=== PATIENT | male | born 1950 | race Caucasian/White ===

== ENCOUNTER 2020-12-11 09:25 | Inpatient (IN) | payer MEDICARE ==
[2020-12-11] MEDS ORDERED: Melatonin 3 MG Tab PO PRN (09:35)
[2020-12-11] MEDS ORDERED: Sodium Chloride 0.9% 10 ML Syringe FLUSH PRN (09:35)
[2020-12-11] MEDS ORDERED: Ondansetron 4 MG Tab.DIS PO PRN (09:35)
[2020-12-11] MEDS ORDERED: Magnesium Hydroxide 400 MG/5 ML Susp 30 ML Cup PO PRN (09:35)
[2020-12-11] MEDS ORDERED: Acetaminophen 325 MG Tab PO PRN (09:35)
[2020-12-11] MEDS: Sotalol 80 MG Tab PO SCH ×2 (10:12→21:27)
--- NOTE | 2020-12-11 13:38 | PCM.HP.2 ---
H&P History of Present Illness - General Date of Service: 12/11/20 Admit Problem/Dx: Admission Diagnosis/Problem Admission Diagnosis/Problem Paroxysmal atrial fibrillation Source of Information: Patient, Provider History Limitations: Reports: No Limitations - History of Present Illness Initial Comments - Free Text/Narative: CC: sotalol initiation HPI: Delroy was directly admitted for initiation of sotalol to manage his paroxysmal atrial fibrillation. He feels well and has no concerns. No recent difficulties with chest pain or dyspnea on exertion. He has not had recent palpitations but recent heart monitor did show a significant A. fib burden. He is in sinus rhythm this morning. No fevers, abdominal pain or nausea. Bowel and bladder are working like normal. Patient feels well and has no concerns at this time. - Related Data Allergies/Adverse Reactions: Allergies Allergy/AdvReac Type Severity Reaction Status Date / Time No Known Allergies Allergy Verified 12/11/20 10:11 Home Medications: Home Meds Apixaban [Eliquis] 5 mg PO BID 12/11/20 [History] Losartan [Cozaar] 100 mg PO DAILY 12/11/20 [History] amLODIPine [Norvasc] 5 mg PO BEDTIME 12/11/20 [History] atenoloL [Atenolol] 50 mg PO BEDTIME 12/11/20 [History] atorvaSTATin [Lipitor] 40 mg PO BEDTIME 12/11/20 [History] hydroCHLOROthiazide [Hydrochlorothiazide] 25 mg PO DAILY 12/11/20 [History] Past Medical History HEENT History: Reports: Impaired Vision Cardiovascular History: Reports: Afib, Hypertension Respiratory History: Reports: None - Past Surgical History HEENT Surgical History: Reports: None Respiratory Surgical History: Reports: None Musculoskeletal Surgical History: Reports: Knee Replacement Social & Family History - Family History Family Medical History: No Pertinent Family History - Tobacco Use Tobacco Use Status *Q: Never Tobacco User Second Hand Smoke Exposure: No - Caffeine Use Caffeine Use: Reports: Coffee - Alcohol Use Days Per Week of Alcohol Use: 6 Number of Drinks Per Day: 2 Total Drinks Per Week: 12 Date of Last Drink: 12/10/20 Time of Last Drink: 21:00 - Recreational Drug Use Recreational Drug Use: No H&P Review of Systems - Review of Systems: Review Of Systems: See Below Free Text/Narrative: A complete 12 point review of systems was obtained. Pertinent positives and negatives are noted in the history of present illness. All other systems were reviewed and were negative except as noted. Exam - Exam Exam: See Below - Vital Signs Vital Signs: Last Vital Signs Temp 35.7 C L 12/11/20 11:34 Pulse 56 L 12/11/20 11:34 Resp 14 12/11/20 11:34 BP 134/70 12/11/20 11:34 Pulse Ox 96 12/11/20 11:34 Weight: 94.801 kg - Exam Quality Assessment: No: Supplemental Oxygen General: Alert, Oriented, Cooperative. No: Mild Distress HEENT: Conjunctiva Clear, Mucosa Moist & [place]. No: Scleral Icterus Neck: Supple, Trachea Midline, Carotid Bruit (Mild bilateral) Lungs: Clear to Auscultation, Normal Respiratory Effort Cardiovascular: Regular Rate, Regular Rhythm, Systolic Murmur (Soft systolic ejection murmur right upper sternal border). No: Gallop/S3 GI/Abdominal Exam: Normal Bowel Sounds, Soft, Non-Tender, No Distention Extremities: No Pedal Edema. No: Increased Warmth Peripheral Pulses: 2+: Dorsalis Pedis (L), Dorsalis Pedis (R) Skin: Warm, Dry Neuro Extensive - Mental Status: Alert, Oriented x3, Nl Response to Commands Neuro Extensive - Motor, Sensory, Reflexes: No: Dysarthria, Abnormal Motor, Tremor Psychiatric: Alert, Normal Affect - Patient Data Lab Results Last 24 hrs: Laboratory Results - last 24 hr 12/11/20 Range/Units 10:01 Sodium 137 L (140-148) mmol/L Potassium 3.9 (3.6-5.2) mmol/L Chloride 100 (100-108) mmol/L Carbon Dioxide 22 (21-32) mmol/L Anion Gap 18.9 H (5.0-14.0) mmol/L BUN 41 H (7-18) mg/dL Creatinine 2.3 H (0.8-1.3) mg/dL Est Cr Clr Drug Dosing 26.00 mL/min Estimated GFR (MDRD) 28 L (>60) Glucose 108 H (74-106) mg/dL Calcium 9.0 (8.5-10.1) mg/dL Magnesium 2.2 (1.8-2.4) mg/dL Result Diagrams: 12/11/20 10:01 #1 Interpretation EKG Date: 12/11/20 Rhythm: NSR Rate (Beats/Min): 58 [place]: Normal P-Wave: Present QRS: Normal ST-T: Normal QT: Normal [place]/PQ Interval: Normal Comparison: NA - No Prior EKG EKG Interpretation Comments: This EKG image was personally reviewed at the time of admission Sepsis Event Note - Evaluation Sepsis Screening Result: No Definite Risk - Focused Exam Vital Signs: Vital Signs Temp Pulse Pulse Resp BP BP Pulse Ox 12/11/20 11:34 35.7 C L 56 L 14 134/70 96 12/11/20 10:12 47 L 114/72 12/11/20 09:54 36.0 C L 51 L 16 114/72 95 *Q Meaningful Use (ADM) - VTE Risk Assess *Q Each Risk Factor Represents 1 Point: Obesity ( BMI > 25 kg/m2) Total Score 1 Point Risk Factors: 1 Each Risk Factor Represents 2 Points: Age 60 - 74 Years Total Score 2 Point Risk Factors: 2 Each Risk Factor Represents 3 Points: None Total Score 3 Point Risk Factors: 0 Each Risk Factor Represents 5 Points: None Total Score 5 Point Risk Factors: 0 Venous Thromboembolism Risk Factor Score *Q: 3 - Problem List (1) Paroxysmal atrial fibrillation SNOMED Code(s): 938022459 ICD Code: I48.0 - PAROXYSMAL ATRIAL FIBRILLATION Status: Acute Current Visit: Yes (2) Obstructive sleep apnea SNOMED Code(s): 65999002 ICD Code: G47.33 - OBSTRUCTIVE SLEEP APNEA (ADULT) (PEDIATRIC) Status: Chronic Current Visit: Yes (3) Coronary artery disease SNOMED Code(s): 30875870 ICD Code: I25.10 - ATHSCL HEART DISEASE OF [place] CORONARY ARTERY W/O ANG PCTRS Status: Chronic Current Visit: Yes Qualifiers: Coronary Disease-Associated Artery/Lesion type: [place] artery [place] vs. transplanted heart: [place] heart Associated angina: without angina Qualified Code(s): I25.10 - Atherosclerotic heart disease of [place] coronary artery without angina pectoris (4) Hypertension SNOMED Code(s): 88060738 ICD Code: I10 - ESSENTIAL (PRIMARY) HYPERTENSION Status: Chronic Current Visit: Yes Qualifiers: Hypertension type: primary hypertension Qualified Code(s): I10 - Essential (primary) hypertension Problem List Initiated/Reviewed/Updated: Yes Orders Last 24hrs: Active Orders 24 hr Category Date Time Status Patient Status [ADT] Routine ADT 12/11/20 09:36 Active Cardiac Monitoring [RC] CONTINUOUS Care 12/11/20 09:37 Active EKG Documentation Completion [RC] ASDIRECTED Care 12/11/20 09:38 Active Intake and Output [RC] QSHIFT Care 12/11/20 09:36 Active Notify Provider Vital Signs [RC] ASDIRECTED Care 12/11/20 09:36 Active Oxygen Therapy [RC] PRN Care 12/11/20 09:36 Active Up ad Shira [RC] ASDIRECTED Care 12/11/20 09:35 Active VTE/DVT Education [RC] Per Unit Routine Care 12/11/20 09:36 Active Vital Signs [RC] Q4H Care 12/11/20 09:36 Active Regular Diet [DIET] Diet 12/11/20 Lunch Active Carotid Comp [US] Routine Exams 12/11/20 13:37 Ordered Acetaminophen [TylenoL] Med 12/11/20 09:35 Active 650 mg PO Q4H PRN Apixaban [Eliquis] Med 12/11/20 21:00 Ordered 5 mg PO BID Docusate Sodium/Sennosides [Senna Plus] Med 12/11/20 09:35 Active 1 tab PO BID PRN Losartan [Cozaar] Med 12/12/20 09:00 Ordered 100 mg PO DAILY Magnesium Hydroxide [Milk of Magnesia] Med 12/11/20 09:35 Active 30 ml PO Q12H PRN Melatonin Med 12/11/20 09:35 Active 9 mg PO BEDTIME PRN Ondansetron [Zofran ODT] Med 12/11/20 09:35 Active 4 mg PO Q6H PRN Sodium Chloride 0.9% [Saline Flush] Med 12/11/20 09:35 Active 10 ml FLUSH ASDIRECTED PRN Sotalol [Betapace] Med 12/11/20 10:30 Active 120 mg PO BID amLODIPine [Norvasc] Med 12/11/20 21:00 Ordered 5 mg PO BEDTIME atorvaSTATin [Lipitor] Med 12/11/20 21:00 Ordered 40 mg PO BEDTIME hydroCHLOROthiazide Med 12/12/20 09:00 Ordered 25 mg PO DAILY Saline Lock Insert [OM.PC] Urgent Oth 12/11/20 09:35 Ordered Resuscitation Status Routine Resus Stat 12/11/20 09:35 Ordered EKG 12 Lead [EK] Urgent Ther 12/11/20 09:35 Ordered Medication Orders Acetaminophen (Acetaminophen 325 Mg Tab) 650 mg PO Q4H PRN PRN Reason: Pain (Mild 1-3)/fever Magnesium Hydroxide (Magnesium Hydroxide 400 Mg/5 Ml Susp 30 Ml Cup) 30 ml PO Q12H PRN PRN Reason: Constipation Melatonin (Melatonin 3 Mg Tab) 9 mg PO BEDTIME PRN PRN Reason: Sleep Ondansetron HCl (Ondansetron 4 Mg Tab.Dis) 4 mg PO Q6H PRN PRN Reason: Nausea able to take PO Senna/Docusate Sodium (Docusate Sodium/Sennosides 50-8.6 Mg Tab) 1 tab PO BID PRN PRN Reason: Constipation Sodium Chloride (Sodium Chloride 0.9% 10 Ml Syringe) 10 ml FLUSH ASDIRECTED PRN PRN Reason: Keep Vein Open Sotalol HCl (Sotalol 80 Mg Tab) 120 mg PO BID INGRID Last Admin: 12/11/20 10:12 Dose: 120 mg Documented by: ROSALIA Assessment/Plan Comment:: ASSESSMENT AND PLAN - Paroxysmal atrial fibrillation-currently in sinus but recent heart monitor suggested significant atrial fibrillation burden. Borderline bradycardic at the time of admission. Baseline EKG shows normal QTc. -Start sotalol 120 mg twice daily -EKG 2 hours after initiation and daily thereafter -Hold beta-janet with bradycardia -Continue apixaban Obstructive sleep apnea-plan to use his home CPAP Coronary artery disease-asymptomatic. -Medical management Maintenance issues - -DVT prophylaxis-apixaban -GI prophylaxis-not indicated -Nutrition-regular -Neri catheter-not indicated CODE STATUS -full Admission justification -this patient will be admitted for inpatient services and is medically appropriate meeting medical necessity for inpatient admission as outlined in my documentation. I reasonably expect the patient will require inpatient services that span a period time over 2 midnights. I reasonably expect this patient to be discharged or transferred within 96 hours [facility]. Disposition -I anticipate discharge home after the hospital stay Primary cardio tech-Dr. Leon Pineda M.D. - Mortality Measure Prognosis:: Good
--- NOTE | 2020-12-11 15:59 | US ---
Carotid Comp INDICATION: bilateral carotid bruits COMPARISON: None. FINDINGS RIGHT: There is moderate mixed plaque in the bifurcation. Peak systolic velocity in the internal carotid artery is 80 cm/sec. Diastolic velocity is 22 cm/sec. ICA/CCA ratio is 0.9. LEFT: There is moderate hard plaque in the left carotid bifurcation. This obscures some detail.. Peak systolic velocity in the internal carotid artery is 168 cm/sec. Diastolic velocity is 31 cm/sec. ICA/CCA ratio is 1.8. External carotid arteries are patent bilaterally. Antegrade flow in both vertebral arteries. IMPRESSION: Mixed plaque right carotid bifurcation with ICA stenosis less than 50% Hard plaque left carotid bifurcation with ICA stenosis between 50 and 69%, likely in the lower end of that range NASCET criteria used.
[2020-12-11] MEDS: Apixaban 5 MG Tab PO SCH (21:27)
[2020-12-11] MEDS: amLODIPine 5 MG Tab PO SCH (21:28)
[2020-12-11] MEDS: atorvaSTATin 20 MG Tab PO SCH (21:28)
[2020-12-12] MEDS: Sotalol 80 MG Tab PO SCH (08:14)
[2020-12-12] MEDS: Apixaban 5 MG Tab PO SCH ×2 (08:14→20:32)
[2020-12-12] MEDS ORDERED: Hydrochlorothiazide 25 MG Tab PO SCH (09:00)
[2020-12-12] MEDS ORDERED: Losartan 50 MG Tab PO SCH (09:00)
--- NOTE | 2020-12-12 10:16 | PCM.PN ---
- General Info Date of Service: 12/12/20 Subjective Update: No acute events overnight. Telemetry monitoring has showed bradycardia with heart rates around 50 a few beats. Patient does not have any dizziness or symptoms with this bradycardia. He is feeling well. He has been up and walking around. Blood pressure has been stable. Carotid ultrasound yesterday showed no significant stenosis on the right and mild to moderate on the left. Labs did show a creatinine of 2.3 with a baseline of 1.1. Functional Status: Reports: Tolerating Diet - Review of Systems General: Denies: Fever Cardiovascular: Denies: Palpitations - Patient Data Vitals - Most Recent: Last Vital Signs Temp 35.8 C L 12/12/20 07:00 Pulse 56 L 12/12/20 08:14 Resp 16 12/12/20 07:00 BP 116/66 12/12/20 08:14 Pulse Ox 94 L 12/12/20 07:00 Weight - Most Recent: 94.801 kg Lab Results Last 24 Hours: Laboratory Results - last 24 hr 12/11/20 Range/Units 10:01 Sodium 137 L (140-148) mmol/L Potassium 3.9 (3.6-5.2) mmol/L Chloride 100 (100-108) mmol/L Carbon Dioxide 22 (21-32) mmol/L Anion Gap 18.9 H (5.0-14.0) mmol/L BUN 41 H (7-18) mg/dL Creatinine 2.3 H (0.8-1.3) mg/dL Est Cr Clr Drug Dosing 26.00 mL/min Estimated GFR (MDRD) 28 L (>60) Glucose 108 H (74-106) mg/dL Calcium 9.0 (8.5-10.1) mg/dL Magnesium 2.2 (1.8-2.4) mg/dL Med Orders - Current: Current Medications Acetaminophen (Acetaminophen 325 Mg Tab) 650 mg PO Q4H PRN PRN Reason: Pain (Mild 1-3)/fever Amlodipine Besylate (Amlodipine 5 Mg Tab) 5 mg PO BEDTIME COUNT INCLUDES THE [facility] Last Admin: 12/11/20 21:28 Dose: 5 mg Documented by: Apixaban (Apixaban 5 Mg Tab) 5 mg PO BID COUNT INCLUDES THE [facility] Last Admin: 12/12/20 08:14 Dose: 5 mg Documented by: Atorvastatin Calcium (Atorvastatin 20 Mg Tab) 40 mg PO BEDTIME COUNT INCLUDES THE [facility] Last Admin: 12/11/20 21:28 Dose: 40 mg Documented by: Hydrochlorothiazide (Hydrochlorothiazide 25 Mg Tab) 25 mg PO DAILY COUNT INCLUDES THE [facility] Last Admin: 12/12/20 08:14 Dose: 25 mg Documented by: Losartan Potassium (Losartan 50 Mg Tab) 100 mg PO DAILY COUNT INCLUDES THE [facility] Last Admin: 12/12/20 08:14 Dose: 100 mg Documented by: Magnesium Hydroxide (Magnesium Hydroxide 400 Mg/5 Ml Susp 30 Ml Cup) 30 ml PO Q12H PRN PRN Reason: Constipation Melatonin (Melatonin 3 Mg Tab) 9 mg PO BEDTIME PRN PRN Reason: Sleep Ondansetron HCl (Ondansetron 4 Mg Tab.Dis) 4 mg PO Q6H PRN PRN Reason: Nausea able to take PO Senna/Docusate Sodium (Docusate Sodium/Sennosides 50-8.6 Mg Tab) 1 tab PO BID PRN PRN Reason: Constipation Sodium Chloride (Sodium Chloride 0.9% 10 Ml Syringe) 10 ml FLUSH ASDIRECTED PRN PRN Reason: Keep Vein Open Sotalol HCl (Sotalol 80 Mg Tab) 120 mg PO DAILY COUNT INCLUDES THE [facility] Discontinued Medications Sotalol HCl (Sotalol 80 Mg Tab) 120 mg PO BID COUNT INCLUDES THE [facility] Last Admin: 12/12/20 08:14 Dose: 120 mg Documented by: - Exam General: Alert, Oriented, Cooperative, No Acute Distress Lungs: Normal Respiratory Effort Cardiovascular: Regular Rhythm, Bradycardia GI/Abdominal Exam: No Distention Extremities: No Pedal Edema Psy/Mental Status: Alert, Normal Affect - Patient Data Lab Results Last 24 hrs: Laboratory Results - last 24 hr 12/11/20 Range/Units 10:01 Sodium 137 L (140-148) mmol/L Potassium 3.9 (3.6-5.2) mmol/L Chloride 100 (100-108) mmol/L Carbon Dioxide 22 (21-32) mmol/L Anion Gap 18.9 H (5.0-14.0) mmol/L BUN 41 H (7-18) mg/dL Creatinine 2.3 H (0.8-1.3) mg/dL Est Cr Clr Drug Dosing 26.00 mL/min Estimated GFR (MDRD) 28 L (>60) Glucose 108 H (74-106) mg/dL Calcium 9.0 (8.5-10.1) mg/dL Magnesium 2.2 (1.8-2.4) mg/dL Result Diagrams: 12/11/20 10:01 Sepsis Event Note - Evaluation Sepsis Screening Result: No Definite Risk - Focused Exam Vital Signs: Vital Signs Temp Pulse Pulse Resp BP BP Pulse Ox 12/12/20 08:14 56 L 116/66 12/12/20 08:11 56 L 12/12/20 07:00 35.8 C L 48 L 16 116/66 94 L 12/12/20 02:52 35.5 C L 51 L 16 145/84 H 97 12/11/20 22:26 35.8 C L 40 L 18 156/74 H 96 - Problem List & Annotations (1) Paroxysmal atrial fibrillation SNOMED Code(s): 070961642 Code(s): I48.0 - PAROXYSMAL ATRIAL FIBRILLATION Status: Acute Current Visit: Yes (2) Obstructive sleep apnea SNOMED Code(s): 98332454 Code(s): G47.33 - OBSTRUCTIVE SLEEP APNEA (ADULT) (PEDIATRIC) Status: Chronic Current Visit: Yes (3) Coronary artery disease SNOMED Code(s): 27170928 Code(s): I25.10 - ATHSCL HEART DISEASE OF [place] CORONARY ARTERY W/O ANG PCTRS Status: Chronic Current Visit: Yes Qualifiers: Coronary Disease-Associated Artery/Lesion type: [place] artery [place] vs. transplanted heart: [place] heart Associated angina: without angina Qualified Code(s): I25.10 - Atherosclerotic heart disease of [place] coronary artery without angina pectoris (4) Hypertension SNOMED Code(s): 27671356 Code(s): I10 - ESSENTIAL (PRIMARY) HYPERTENSION Status: Chronic Current Visit: Yes Qualifiers: Hypertension type: primary hypertension Qualified Code(s): I10 - Essential (primary) hypertension - Problem List Review Problem List Initiated/Reviewed/Updated: Yes - My Orders Last 24 Hours: My Active Orders 12/11/20 09:35 Up ad Shira [RC] ASDIRECTED Acetaminophen [TylenoL] 650 mg PO Q4H PRN Docusate Sodium/Sennosides [Senna Plus] 1 tab PO BID PRN Magnesium Hydroxide [Milk of Magnesia] 30 ml PO Q12H PRN Melatonin 9 mg PO BEDTIME PRN Ondansetron [Zofran ODT] 4 mg PO Q6H PRN Sodium Chloride 0.9% [Saline Flush] 10 ml FLUSH ASDIRECTED PRN Saline Lock Insert [OM.PC] Urgent Resuscitation Status Routine EKG 12 Lead [EK] Urgent 12/11/20 09:36 Patient Status [ADT] Routine Intake and Output [RC] QSHIFT Notify Provider Vital Signs [RC] ASDIRECTED Oxygen Therapy [RC] PRN Vital Signs [RC] Q4H 12/11/20 09:37 Cardiac Monitoring [RC] CONTINUOUS 12/11/20 09:38 EKG Documentation Completion [RC] ASDIRECTED 12/11/20 Lunch Regular Diet [DIET] 12/11/20 21:00 Apixaban [Eliquis] 5 mg PO BID amLODIPine [Norvasc] 5 mg PO BEDTIME atorvaSTATin [Lipitor] 40 mg PO BEDTIME 12/12/20 09:00 Losartan [Cozaar] 100 mg PO DAILY hydroCHLOROthiazide 25 mg PO DAILY 12/12/20 09:19 EKG Documentation Completion [RC] ASDIRECTED 12/12/20 10:00 Communication Order [RC] ROUTINE 12/12/20 10:15 EKG 12 Lead [EK] Routine 12/12/20 11:00 EKG 12 Lead [EK] Routine 12/13/20 05:00 BASIC METABOLIC PANEL,BMP [CHEM] Timed 12/13/20 09:00 Sotalol [Betapace] 120 mg PO DAILY - Plan Plan:: ASSESSMENT AND PLAN - Paroxysmal atrial fibrillation-currently in sinus bradycardia. QTc was acceptable 2 hours after yesterday's dose. This morning's EKG is still pending. With his reduced GFR we are going to decrease the sotalol to once daily. Atenolol on hold because of bradycardia. -Continue sotalol 120 mg daily -EKG 2 hours after morning dose -Continue to hold beta-janet with bradycardia -Continue apixaban Obstructive sleep apnea-plan to use his home CPAP Coronary artery disease-asymptomatic. -Medical management Maintenance issues - -DVT prophylaxis-apixaban -GI prophylaxis-not indicated -Nutrition-regular Disposition -I anticipate discharge home after the hospital stay Primary environmental air specialist-Dr. Leon Pineda M.D.
[2020-12-12] MEDS ORDERED: Sodium Chloride 0.9% 500 ML IV SCH (14:15)
--- NOTE | 2020-12-12 14:51 | PCM.EKG ---
#1 Interpretation EKG Date: 12/11/20 Time: 12:11 Rhythm: Other (sinus bradycardia) Rate (Beats/Min): 49 [place]: Normal P-Wave: Present QRS: Normal ST-T: Normal QT: Normal [place]/PQ Interval: normal Comparison: NA - No Prior EKG #2 Interpretation EKG Date: 12/12/20 Time: 07:15 Rhythm: Other (sinus bradycardia) Rate (Beats/Min): 49 [place]: Normal P-Wave: Present QRS: Normal ST-T: Normal QT: Normal Comparison: No Change (compared to 12/11/20)
[2020-12-12] MEDS: Sodium Chloride 0.9% 1,000 ML IV SCH (19:15)
[2020-12-12] MEDS: amLODIPine 5 MG Tab PO SCH (20:31)
[2020-12-12] MEDS: atorvaSTATin 20 MG Tab PO SCH (20:32)
[2020-12-13] MEDS: Sodium Chloride 0.9% 1,000 ML IV SCH (05:16)
[2020-12-13] MEDS: Sotalol 80 MG Tab PO SCH (08:20)
[2020-12-13] MEDS: Apixaban 5 MG Tab PO SCH ×2 (08:21→20:26)
--- NOTE | 2020-12-13 10:05 | PCM.PN ---
- General Info Date of Service: 12/13/20 Subjective Update: No acute events overnight. Patient reports that he continues to feel well and offers no concerns. He has noticed increased urination with the IV fluids overnight and his creatinine has improved down to 1.6. Heart rate has been pretty steady right around 50. Blood pressure mildly elevated. Serial EKGs have not shown any change in his corrected QT interval. Functional Status: Reports: Pain Controlled, Tolerating Diet - Review of Systems General: Denies: Weakness Cardiovascular: Denies: Palpitations - Patient Data Vitals - Most Recent: Last Vital Signs Temp 35.8 C L 12/13/20 07:06 Pulse 46 L 12/13/20 08:20 Resp 18 12/13/20 07:06 BP 156/76 H 12/13/20 08:20 Pulse Ox 96 12/13/20 07:06 Weight - Most Recent: 94.801 kg I&O - Last 24 Hours: Intake & Output 12/12/20 12/13/20 12/13/20 22:59 06:59 14:59 Intake Total 1465 1500 840 Balance 1465 1500 840 Lab Results Last 24 Hours: Laboratory Results - last 24 hr 12/13/20 Range/Units 05:15 Sodium 142 (140-148) mmol/L Potassium 4.0 (3.6-5.2) mmol/L Chloride 105 (100-108) mmol/L Carbon Dioxide 25 (21-32) mmol/L Anion Gap 12.0 (5.0-14.0) mmol/L BUN 39 H (7-18) mg/dL Creatinine 1.6 H (0.8-1.3) mg/dL Est Cr Clr Drug Dosing 37.31 mL/min Estimated GFR (MDRD) 43 L (>60) Glucose 113 H (74-106) mg/dL Calcium 8.6 (8.5-10.1) mg/dL Med Orders - Current: Current Medications Acetaminophen (Acetaminophen 325 Mg Tab) 650 mg PO Q4H PRN PRN Reason: Pain (Mild 1-3)/fever Amlodipine Besylate (Amlodipine 5 Mg Tab) 5 mg PO BEDTIME [facility] Last Admin: 12/12/20 20:31 Dose: 5 mg Documented by: Apixaban (Apixaban 5 Mg Tab) 5 mg PO BID [facility] Last Admin: 12/13/20 08:21 Dose: 5 mg Documented by: Aspirin (Aspirin 81 Mg Tab.Ec) 81 mg PO DAILY [facility] Atorvastatin Calcium (Atorvastatin 20 Mg Tab) 40 mg PO BEDTIME [facility] Last Admin: 12/12/20 20:32 Dose: 40 mg Documented by: Sodium Chloride (Normal Saline) 1,000 mls @ 100 mls/hr IV ASDIRECTED [facility] Last Admin: 12/13/20 05:16 Dose: 100 mls/hr Documented by: Losartan Potassium (Losartan 50 Mg Tab) 100 mg PO DAILY [facility] Last Admin: 12/12/20 08:14 Dose: 100 mg Documented by: Magnesium Hydroxide (Magnesium Hydroxide 400 Mg/5 Ml Susp 30 Ml Cup) 30 ml PO Q12H PRN PRN Reason: Constipation Melatonin (Melatonin 3 Mg Tab) 9 mg PO BEDTIME PRN PRN Reason: Sleep Ondansetron HCl (Ondansetron 4 Mg Tab.Dis) 4 mg PO Q6H PRN PRN Reason: Nausea able to take PO Senna/Docusate Sodium (Docusate Sodium/Sennosides 50-8.6 Mg Tab) 1 tab PO BID PRN PRN Reason: Constipation Sodium Chloride (Sodium Chloride 0.9% 10 Ml Syringe) 10 ml FLUSH ASDIRECTED PRN PRN Reason: Keep Vein Open Sotalol HCl (Sotalol 80 Mg Tab) 120 mg PO DAILY [facility] Last Admin: 12/13/20 08:20 Dose: 120 mg Documented by: Discontinued Medications Hydrochlorothiazide (Hydrochlorothiazide 25 Mg Tab) 25 mg PO DAILY [facility] Last Admin: 12/12/20 08:14 Dose: 25 mg Documented by: Sodium Chloride (Normal Saline) 500 mls @ 500 mls/hr IV ASDIRECTED [facility] Stop: 12/12/20 15:16 Last Admin: 12/12/20 14:15 Dose: 500 mls/hr Documented by: Sotalol HCl (Sotalol 80 Mg Tab) 120 mg PO BID [facility] Last Admin: 12/12/20 08:14 Dose: 120 mg Documented by: - Exam Quality Assessment: No: Supplemental Oxygen General: Alert, Oriented, Cooperative, No Acute Distress Lungs: Normal Respiratory Effort Cardiovascular: Regular Rhythm, Bradycardia GI/Abdominal Exam: Soft, No Distention Extremities: No Pedal Edema Psy/Mental Status: Alert, Normal Affect - Patient Data Lab Results Last 24 hrs: Laboratory Results - last 24 hr 12/13/20 Range/Units 05:15 Sodium 142 (140-148) mmol/L Potassium 4.0 (3.6-5.2) mmol/L Chloride 105 (100-108) mmol/L Carbon Dioxide 25 (21-32) mmol/L Anion Gap 12.0 (5.0-14.0) mmol/L BUN 39 H (7-18) mg/dL Creatinine 1.6 H (0.8-1.3) mg/dL Est Cr Clr Drug Dosing 37.31 mL/min Estimated GFR (MDRD) 43 L (>60) Glucose 113 H (74-106) mg/dL Calcium 8.6 (8.5-10.1) mg/dL Result Diagrams: 12/13/20 05:15 Sepsis Event Note - Evaluation Sepsis Screening Result: Possible Sepsis Risk - Focused Exam Vital Signs: Vital Signs Temp Pulse Pulse Resp BP BP Pulse Ox 12/13/20 08:20 46 L 156/76 H 12/13/20 07:06 35.8 C L 46 L 18 156/76 H 96 12/13/20 03:00 35.8 C L 50 L 18 137/70 96 12/12/20 23:00 35.4 C L 46 L 18 162/82 H 98 - Problem List & Annotations (1) Paroxysmal atrial fibrillation SNOMED Code(s): 138418179 Code(s): I48.0 - PAROXYSMAL ATRIAL FIBRILLATION Status: Acute Current Visit: Yes (2) Acute kidney injury SNOMED Code(s): 02287694, 46390950 Code(s): N17.9 - ACUTE KIDNEY FAILURE, UNSPECIFIED Status: Acute Current Visit: Yes (3) Obstructive sleep apnea SNOMED Code(s): 05096426 Code(s): G47.33 - OBSTRUCTIVE SLEEP APNEA (ADULT) (PEDIATRIC) Status: Chronic Current Visit: Yes (4) Coronary artery disease SNOMED Code(s): 99380903 Code(s): I25.10 - ATHSCL HEART DISEASE OF [place] CORONARY ARTERY W/O ANG PCT RS Status: Chronic Current Visit: Yes Qualifiers: Coronary Disease-Associated Artery/Lesion type: [place] artery [place] vs. transplanted heart: [place] heart Associated angina: without angina Qualified Code(s): I25.10 - Atherosclerotic heart disease of [place] coronary artery without angina pectoris (5) Hypertension SNOMED Code(s): 13085995 Code(s): I10 - ESSENTIAL (PRIMARY) HYPERTENSION Status: Chronic Current Visit: Yes Qualifiers: Hypertension type: primary hypertension Qualified Code(s): I10 - Essential (primary) hypertension - Problem List Review Problem List Initiated/Reviewed/Updated: Yes - My Orders Last 24 Hours: My Active Orders 12/12/20 10:00 Communication Order [RC] ROUTINE 12/12/20 10:15 EKG 12 Lead [EK] Routine 12/12/20 11:00 EKG 12 Lead [EK] Routine 12/12/20 14:15 Sodium Chloride 0.9% [Normal Saline] 1,000 ml IV ASDIRECTED 12/12/20 14:52 EKG Documentation Completion [RC] ASDIRECTED 12/13/20 09:00 Sotalol [Betapace] 120 mg PO DAILY 12/13/20 10:00 Aspirin [Halfprin] 81 mg PO DAILY 12/13/20 10:03 Convert IV to Saline Lock [OM.PC] Routine 12/13/20 11:00 EKG 12 Lead [EK] DAILY 12/14/20 05:00 BASIC METABOLIC PANEL,BMP [CHEM] Timed 12/14/20 11:00 EKG 12 Lead [EK] DAILY - Plan Plan:: ASSESSMENT AND PLAN - Paroxysmal atrial fibrillation-currently in sinus bradycardia. QTc has remained stable. Sotalol is currently being renally dosed but he seems to be tolerating it well. Still bradycardic. -Continue sotalol 120 mg daily -EKG 2 hours after morning dose -Continue to hold beta-janet with bradycardia -Continue apixaban Acute kidney injury-noted on admit labs, suspect intravascular volume depletion with suboptimal intake and diuretic use. Improving with fluids. -Hydrochlorothiazide has been discontinued -Saline lock IV -Encourage p.o. intake -Repeat labs in the morning Obstructive sleep apnea-plan to use his home CPAP Coronary artery disease-asymptomatic. -Medical management Maintenance issues - -DVT prophylaxis-apixaban -GI prophylaxis-not indicated -Nutrition-regular Disposition -I anticipate discharge home after the hospital stay Primary form setter-Dr. Leon Pineda M.D.
[2020-12-13] MEDS: Aspirin 81 MG Tab.EC PO SCH (10:21)
--- NOTE | 2020-12-13 12:54 | PCM.EKG ---
#1 Interpretation EKG Date: 12/12/20 Time: 10:13 Rhythm: Other (Sinus bradycardia) Rate (Beats/Min): 46 [place]: Normal P-Wave: Present QRS: Normal ST-T: Normal QT: Normal (QTc 439) NE/PQ Interval: Normal Comparison: No Change (Compared to EKG from earlier in the day or the day prior)
[2020-12-13] MEDS: atorvaSTATin 20 MG Tab PO SCH (20:26)
[2020-12-13] MEDS: amLODIPine 5 MG Tab PO SCH (20:27)
[2020-12-14] MEDS: Sotalol 80 MG Tab PO SCH (07:59)
[2020-12-14] MEDS: Apixaban 5 MG Tab PO SCH (08:00)
[2020-12-14] MEDS: Aspirin 81 MG Tab.EC PO SCH (08:00)
--- NOTE | 2020-12-14 11:42 | PCM.DCSUM1 ---
Discharge Summary - Hospital Course Brief History: 70-year-old male with history of paroxysmal atrial fibrillation, hypertension who presented as a direct admission for initiation of sotalol. Diagnosis: Stroke: No - Discharge Data Discharge Date: 12/14/20 Discharge Disposition: Home, Self-Care 01 Condition: Good - Referral to Home Health Primary Care Physician: PCP None - Discharge Diagnosis/Problem(s) (1) Paroxysmal atrial fibrillation SNOMED Code(s): 431014463 ICD Code: I48.0 - PAROXYSMAL ATRIAL FIBRILLATION Status: Acute Current Visit: Yes (2) Acute kidney injury SNOMED Code(s): 37201321, 88226060 ICD Code: N17.9 - ACUTE KIDNEY FAILURE, UNSPECIFIED Status: Acute Current Visit: Yes (3) Obstructive sleep apnea SNOMED Code(s): 66660617 ICD Code: G47.33 - OBSTRUCTIVE SLEEP APNEA (ADULT) (PEDIATRIC) Status: Chronic Current Visit: Yes (4) Coronary artery disease SNOMED Code(s): 64092172 ICD Code: I25.10 - ATHSCL HEART DISEASE OF [place] CORONARY ARTERY W/O ANG PCTRS Status: Chronic Current Visit: Yes Qualifiers: Coronary Disease-Associated Artery/Lesion type: [place] artery [place] vs. transplanted heart: [place] heart Associated angina: without angina Qualified Code(s): I25.10 - Atherosclerotic heart disease of [place] coronary artery without angina pectoris (5) Hypertension SNOMED Code(s): 27162974 ICD Code: I10 - ESSENTIAL (PRIMARY) HYPERTENSION Status: Chronic Current Visit: Yes Qualifiers: Hypertension type: primary hypertension Qualified Code(s): I10 - Essential (primary) hypertension - Patient Summary/Data Hospital Course: He was directly admitted to the hospital for initiation of sotalol to control his paroxysmal atrial fibrillation. Baseline laboratory studies did reveal a creatinine of 2.3 with a baseline of 1-1.1. He was also bradycardic. We elected to hold the atenolol and we stopped his hydrochlorothiazide. We did initiate the sotalol at renal dosing. Intravascular volume depletion was suspected for the cause of his acute kidney injury. His kidney function did normalize over the course of a couple of days with some IV fluids and increased oral intake as well as stopping the hydrochlorothiazide. He has tolerated the sotalol well. His corrected QT interval has been between 440 and 460 ms. His heart rate has remained around 50 but he has been asymptomatic even with a ctivity. He has received 5 doses of the sotalol and is doing well. This point I think he is stable and safe for discharge home. The plan is for him to stay off of the atenolol as well as the hydrochlorothiazide because of the bradycardia and acute kidney injury, respectively. Blood pressure has been around 140 systolic. He has follow-up scheduled in about 10 days to recheck his blood pressure and then will be following up with his flush tester in a few weeks. - Patient Instructions Diet: Heart Healthy Diet Activity: As Tolerated Driving: May Drive Today Showering/Bathing: May Shower Other/Special Instructions: 1. You were in the hospital for initiation of sotalol to help control your atrial fibrillation. We were closely monitoring at the repolarization of your heart with serial EKG images. Everything seems to be going fine based on the EKGs we have obtained. We did note that your heart rate has been on the slow side (bradycardia) so I elected to stop your atenolol. We did also stop your hydrochlorothiazide because of dehydration and irr itation/injury to the kidney. Your volume status appears appropriate and your kidney function is back to normal. I recommend that you take sotalol 120 mg twice daily as recommended by her flush tester. 2. Stop taking both atenolol and hydrochlorothiazide. You should follow-up with your primary care in 1 to 2 weeks to recheck your blood pressure and heart rate. 3. Follow up with your flush tester as scheduled in early January. 4. Continue your other home medications as previously prescribed. - Discharge Plan *PRESCRIPTION DRUG MONITORING PROGRAM REVIEWED*: Not Applicable *COPY OF PRESCRIPTION DRUG MONITORING REPORT IN PATIENT [place]: Not Applicable Prescriptions/Med Rec: Sotalol [Betapace] 120 mg PO BID #60 tablet Home Medications: Home Meds Apixaban [Eliquis] 5 mg PO BID 12/11/20 [History] Losartan [Cozaar] 100 mg PO DAILY 12/11/20 [History] amLODIPine [Norvasc] 5 mg PO BEDTIME 12/11/20 [History] atorvaSTATin [Lipitor] 40 mg PO BEDTIME 12/11/20 [History] Aspirin [Adult Low Dose Aspirin EC] 81 mg PO DAILY 12/12/20 [History] Sotalol [Betapace] 120 mg PO BID #60 tablet 12/14/20 [Rx] Oxygen Therapy Mode: Room Air Patient Handouts: Sotalol tablets (Betapace AF), Atrial Fibrillation, [id number] Referrals: Leon Cordoba MD [Ordering Only Provider] - 01/21/21 9:15 am (Appointment will be at [facility] in [place], [place] located at the [address] [place] [address].) Jack Graf MD [Physician] - 12/28/20 2:00 pm (Please arrive 15 minutes early to register for your appointment.) - Discharge Summary/Plan Comment DC Time >30 min.: No Total # of Minutes for Discharge Time: 25 - Patient Data Vitals - Most Recent: Last Vital Signs Temp 35.7 C L 12/14/20 10:37 Pulse 67 12/14/20 10:37 Resp 18 12/14/20 10:37 BP 146/91 H 12/14/20 10:37 Pulse Ox 94 L 12/14/20 10:37 Weight - Most Recent: 94.801 kg I&O - Last 24 hours: Intake & Output 12/13/20 12/14/20 12/14/20 22:59 06:59 14:59 Intake Total 400 500 Balance 400 500 Lab Results - Last 24 hrs: Laboratory Results - last 24 hr 12/14/20 Range/Units 05:53 Sodium 140 (140-148) mmol/L Potassium 4.0 (3.6-5.2) mmol/L Chloride 105 (100-108) mmol/L Carbon Dioxide 24 (21-32) mmol/L Anion Gap 10.8 (5.0-14.0) mmol/L BUN 28 H (7-18) mg/dL Creatinine 1.2 (0.8-1.3) mg/dL Est Cr Clr Drug Dosing 49.75 mL/min Estimated GFR (MDRD) 60 (>60) Glucose 106 (74-106) mg/dL Calcium 8.6 (8.5-10.1) mg/dL Med Orders - Current: Current Medications Acetaminophen (Acetaminophen 325 Mg Tab) 650 mg PO Q4H PRN PRN Reason: Pain (Mild 1-3)/fever Amlodipine Besylate (Amlodipine 5 Mg Tab) 5 mg PO BEDTIME [facility] Last Admin: 12/13/20 20:27 Dose: 5 mg Documented by: Apixaban (Apixaban 5 Mg Tab) 5 mg PO BID [facility] Last Admin: 12/14/20 08:00 Dose: 5 mg Documented by: Aspirin (Aspirin 81 Mg Tab.Ec) 81 mg PO DAILY [facility] Last Admin: 12/14/20 08:00 Dose: 81 mg Documented by: Atorvastatin Calcium (Atorvastatin 20 Mg Tab) 40 mg PO BEDTIME [facility] Last Admin: 12/13/20 20:26 Dose: 40 mg Documented by: Losartan Potassium (Losartan 50 Mg Tab) 100 mg PO DAILY [facility] Last Admin: 12/12/20 08:14 Dose: 100 mg Documented by: Magnesium Hydroxide (Magnesium Hydroxide 400 Mg/5 Ml Susp 30 Ml Cup) 30 ml PO Q12H PRN PRN Reason: Constipation Melatonin (Melatonin 3 Mg Tab) 9 mg PO BEDTIME PRN PRN Reason: Sleep Ondansetron HCl (Ondansetron 4 Mg Tab.Dis) 4 mg PO Q6H PRN PRN Reason: Nausea able to take PO Senna/Docusate Sodium (Docusate Sodium/Sennosides 50-8.6 Mg Tab) 1 tab PO BID PRN PRN Reason: Constipation Sodium Chloride (Sodium Chloride 0.9% 10 Ml Syringe) 10 ml FLUSH ASDIRECTED PRN PRN Reason: Keep Vein Open Sotalol HCl (Sotalol 80 Mg Tab) 120 mg PO DAILY [facility] Last Admin: 12/14/20 07:59 Dose: 120 mg Documented by: Discontinued Medications Hydrochlorothiazide (Hydrochlorothiazide 25 Mg Tab) 25 mg PO DAILY [facility] Last Admin: 12/12/20 08:14 Dose: 25 mg Documented by: Sodium Chloride (Normal Saline) 500 mls @ 500 mls/hr IV ASDIRECTED [facility] Stop: 12/12/20 15:16 Last Admin: 12/12/20 14:15 Dose: 500 mls/hr Documented by: Sodium Chloride (Normal Saline) 1,000 mls @ 100 mls/hr IV ASDIRECTED [facility] Last Admin: 12/13/20 05:16 Dose: 100 mls/hr Documented by: Sotalol HCl (Sotalol 80 Mg Tab) 120 mg PO BID [facility] Last Admin: 12/12/20 08:14 Dose: 120 mg Documented by:
== END 2020-12-14 12:10 | disposition home or self-care (01) | DRG 309 ==
LOC: JP.MS 09:25
PROVIDERS: ADMIT Internal Medicine; ATTEND Internal Medicine
DX: I48.0 Paroxysmal atrial fibrillation (principal); N17.9 Acute kidney failure, unspecified; I10 Essential (primary) hypertension; G47.33 Obstructive sleep apnea (adult) (pediatric); I25.10 Atherosclerotic heart disease of native coronary artery without angina pectoris; Z79.01 Long term (current) use of anticoagulants
CPT/HCPCS: 36415; 80048; 83735; 93005; 93880; 93880-26; A9270-GY; J7030